=== PATIENT | male | born 1965 | race Caucasian/White ===

== ENCOUNTER 2018-06-07 14:38 | Emergency (ER) | payer BC, MEDICAID ==
[2018-06-07] MEDS ORDERED: fentaNYL 100 MCG/2 ML SDV IVPUSH PRN (14:59)
[2018-06-07] MEDS ORDERED: fentaNYL 100 MCG/2 ML SDV IVPUSH ONE ×3 (14:59→16:04)
--- NOTE | 2018-06-07 15:09 | EDM.PDOC ---
ED HPI GENERAL MEDICAL PROBLEM - General Chief Complaint: Upper Extremity Injury/Pain Stated Complaint: SHOULDER PAIN, FALLEN Time Seen by Provider: 06/07/18 14:49 Source of Information: Reports: Patient, RN, RN Notes Reviewed History Limitations: Reports: No Limitations - History of Present Illness INITIAL COMMENTS - FREE TEXT/NARRATIVE: Patient presents the emergency room at [facility] for the evaluation of a left shoulder injury. The patient states that he was walking into a building when he slipped and fell on the ice landing on his left shoulder. The patient states he immediately felt pain. The patient states that he is unable to move his left shoulder. The patient denies any elbow or wrist pathology. The patient has not had any previous injury or trauma to the affected area. No previous left shoulder surgeries. The patient states he is feeling numbness and tingling of the left upper extremity. Patient denies any head injury or trauma. Otherwise no other concerns. Onset: Today, Sudden Onset Date: 06/07/18 Review of Systems - Review of Systems Review Of Systems: See Below Constitutional: Denies: Chills, Fever Respiratory: Denies: Shortness of Breath, Cough Cardiovascular: Denies: Chest Pain, Palpitations Musculoskeletal: Reports: Shoulder Pain (Left) Skin: Reports: No Symptoms Neurological: Reports: Numbness (LUE) ED EXAM, GENERAL - Physical Exam Exam: See Below Exam Limited By: No Limitations General Appearance: Alert, No Apparent Distress Head: Atraumatic, Normocephalic Neck: Normal Inspection, Supple Respiratory/Chest: No Respiratory Distress, Lungs Clear, Normal Breath Sounds Cardiovascular: Normal Peripheral Pulses, Regular Rate, Rhythm Peripheral Pulses: 2+: Radial (L), Radial (R) Extremities: Limited Range of Motion (Left ), Increased Warmth Neurological: Alert, Oriented Skin Exam: Warm, Dry, Intact, Normal Color ED TRAUMA EXTREMITY PROCEDURES - Joint Reduction Site: Shoulder (L) Sedation: Conscious Sedation Local Anesthesia - Lidocaine (Xylocaine): Other (None) Local Anesthesia - Bupivicaine (Marcaine): Other (None) Pre-Procedure NV Status: Normal Post-Procedure NV Status: Normal Technique: Traction/Counter Traction Number of Attempts: 1 Post-Reduction Imaging: Completely Reduced Joint Reduction Complications: No Course - Orders/Labs/Meds Orders: Active Orders 24 hr Category Date Time Status Procedural Sedation [Moderate Sedation Record] [RC] Care 06/07/18 16:05 Active ASDIRECTED Shoulder 1V Lt [CR] Stat Exams 06/07/18 16:02 Taken Meds: Medications Discontinued Medications Generic Name Dose Route Start Last Admin Trade Name Robsonq PRN Reason Stop Dose Admin Fentanyl 50 mcg 06/07/18 14:59 Sublimaze IVPUSH ASDIRECTED PRN Pain Fentanyl 50 mcg 06/07/18 14:59 06/07/18 15:05 Sublimaze IVPUSH 06/07/18 15:00 50 mcg ONETIME ONE Administration Fentanyl 50 mcg 06/07/18 15:39 Sublimaze IVPUSH 06/07/18 15:40 ONETIME ONE Fentanyl 50 mcg 06/07/18 16:04 Sublimaze IVPUSH 06/07/18 16:05 ONETIME ONE Midazolam HCl 2 mg 06/07/18 15:40 Versed 1 Mg/Ml IVPUSH 06/07/18 15:41 ONETIME ONE Midazolam HCl 1 mg 06/07/18 16:04 Versed 1 Mg/Ml IVPUSH 06/07/18 16:05 ONETIME ONE - Radiology Interpretation Free Text/Narrative:: Shoulder, Left, initial: Anterior glenohumeral dislocation Shoulder, Left, post reduction: No acute fracture or dislocation; reduction successful Departure - Departure Time of Disposition: 16:10 Disposition: Home, Self-Care 01 Condition: Good Clinical Impression: Dislocation of left shoulder joint Qualifiers: Encounter type: initial encounter Qualified Code(s): S43.005A - Unspecified dislocation of left shoulder joint, initial encounter - Discharge Information *PRESCRIPTION DRUG MONITORING PROGRAM REVIEWED*: Not Applicable *COPY OF PRESCRIPTION DRUG MONITORING REPORT IN PATIENT CAROLYN: Not Applicable Instructions: Shoulder Dislocation Referrals: PCP,Not In Area [Primary Care Provider] - Forms: ED Department Discharge Additional Instructions: 1. Stay well hydrated and rest 2. Use Tylenol/Advil as needed for pain/discomfort 3. See your PCP next week for a recheck 4. Call us with any questions or concerns - Problem List Review Problem List Initiated/Reviewed/Updated: Yes - My Orders Last 24 Hours: My Active Orders 06/07/18 16:02 Shoulder 1V Lt [CR] Stat 06/07/18 16:05 Procedural Sedation [Moderate Sedation Record] [RC] ASDIRECTED - Assessment/Plan Last 24 Hours: My Active Orders 06/07/18 16:02 Shoulder 1V Lt [CR] Stat 06/07/18 16:05 Procedural Sedation [Moderate Sedation Record] [RC] ASDIRECTED Assessment:: Shoulder dislocation, Left Plan: Xray discussed ith patient. Consent signed for conscious sedation and left shoulder reduction. Recommend patient follow up with PCP this next week for a recheck.
--- NOTE | 2018-06-07 15:37 | CR ---
[id number] RAD/RAD Shoulder Left 2V Min EXAM: LEFT SHOULDER 3 VIEWS INDICATION: Left shoulder pain after fall on ice. COMPARISON: None. DISCUSSION: There is anterior dislocation of the humerus relative to the glenoid. 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 No fracture is identified. IMPRESSION: 1. Anterior glenohumeral dislocation. Reji Bethea MD 06/07/18 [id number] Thank you for allowing us to participate in the care of your patient.
[2018-06-07] MEDS ORDERED: Midazolam 1 MG/ML 2 ML SDV IVPUSH ONE ×2 (15:40→16:04)
--- NOTE | 2018-06-07 16:21 | CR ---
[id number] RAD/RAD Shoulder Left 1V EXAM: LEFT SHOULDER ONE VIEW INDICATION: POST REDUCTION. COMPARISON: 3:05 PM same date. DISCUSSION: Interval reduction of glenohumeral dislocation. No fracture is identified on this single view. Moderate acromioclavicular osteoarthritis. IMPRESSION: 1. Successful reduction of a glenohumeral dislocation. Reji Bethea MD 06/07/18 [id number] Thank you for allowing us to participate in the care of your patient.
== END 2018-06-07 17:00 | disposition home or self-care (01) ==
LOC: EDBD 14:38 → VM.ED 14:38
DX: S43.005A Unspecified dislocation of left shoulder joint, initial encounter (principal); W00.0XXA Fall on same level due to ice and snow, initial encounter
CPT/HCPCS: 23650; 73020; 73030; 96361; 96374; 96375; 96376; 99152; 99284; J3010